=== PATIENT | female | born 1990 | race Caucasian/White ===

== ENCOUNTER 2021-09-26 02:01 | Emergency (ER) | payer SELFPAY ==
[~2021-09-26] VITALS: Ht 162.6 cm; Wt 110.6 kg
[2021-09-26 04:06] LABS: BASOPHILS % 0.6 % (0.0-2.0); EOSINOPHILS % 3.2 % (0.0-5.0); HEMATOCRIT. 31.8 % (36.0-48.0); HEMOGLOBIN. 10.7 g/dL (12.0-16.0); LYMPHOCYTES % 45.4 % (20.0-50.0); MEAN CORPUSCULAR HEMOGLOBIN 26.2 pg (28.0-32.0); MEAN CORPUSCULAR VOLUME 78.2 fL (81.0-99.0); MONOCYTES % 6.6 % (2.0-8.0); NEUTROPHILS % 44.2 % (40.0-76.0); PLATELET 349 x1000/uL (130-400); RED BLOOD CELL COUNT 4.07 mill/uL (4.2-5.4); RED CELL DISTRIBUTION WIDTH 16.6 % (11.6-14.6)
[2021-09-26 04:17] LABS: CHLORIDE 107 mEq/L (98-107)
[2021-09-26 04:38] LABS: B-HCG QUANTITATIVE 350 mIU/mL (<3)
[2021-09-26 05:51] LABS: CLARITY URINE CLEAR (CLEAR); COLOR URINE YELLOW (YELLOW); KETONES URINE TRACE (NEGATIVE); LEUKOCYTE ESTERASE URINE NEGATIVE (NEGATIVE); NITRITE URINE NEGATIVE (NEGATIVE); OCCULT BLOOD URINE 3+ (NEGATIVE); PH URINE 5.5 (4.5-8.0); PROTEIN URINE TRACE (NEGATIVE); SPECIFIC GRAVITY URINE 1.026 (1.005-1.030)
[2021-09-26] MEDS ORDERED: METH PO (07:10)
[2021-09-26] MEDS ORDERED: TOPUD PO (07:10)
[2021-09-26 07:21] VITALS: BP 128/86
== END 2021-09-26 07:23 | disposition home or self-care (01) ==
LOC: ER 02:01
DX: O03.9 Complete or unspecified spontaneous abortion without complication (principal)
CPT/HCPCS: 36415; 76801; 80053; 81003; 84702; 85025; 86850; 86900; 99284